=== PATIENT | female | born 1975 | race Caucasian/White ===

== ENCOUNTER 2017-08-12 20:55 | Emergency (ER) | payer MEDICAID | END 2017-08-12 22:58 | disposition home or self-care (01) | LOC: D.ER 20:55 | DX: R07.89 Other chest pain (principal); Z85.42 Personal history of malignant neoplasm of other parts of uterus; F17.200 Nicotine dependence, unspecified, uncomplicated ==

== ENCOUNTER 2018-08-08 11:24 | Emergency (ER) | payer MEDICAID ==
[~2018-08-08] VITALS: Ht 162.6 cm; Wt 59.1 kg
[2018-08-08 11:31] VITALS: Ht 162.6 cm; Wt 59.1 kg
[2018-08-08 12:16] LABS: BASOPHILS 0.2 % (0-2); EOSINOPHILS 2.9 % (0-7); HEMATOCRIT 45.5 % (36.0-48.0); HEMOGLOBIN 16.1 g/dL (12-16); IMMATURE GRANULOCYTES 0.2 % (0-5); LYMPHOCYTES 24.8 % (15-50); MCH 31.9 pg (26.0-34.0); MCHC 35.4 g/dL (31.0-37.0); MCV 90.1 fL (80.0-100.0); MONOCYTES 6.9 % (2-11); RBC 5.05 10x6/uL (4.00-5.40); WBC 13.3 10x3/uL (4.8-10.8)
[2018-08-08 12:20] LABS: PLATELET COUNT 257 10x3/uL (130-400)
[2018-08-08 12:36] LABS: ALKALINE PHOSPHATASE 156 U/L (46-116); ALT (SGPT) 28 U/L (10-68); AMYLASE - SERUM 42 U/L (25-115); BILIRUBIN - TOTAL 0.65 mg/dL (0.2-1.3); CALCIUM 9.3 mg/dL (8.5-10.1); CARBON DIOXIDE 26.7 mmol/L (21.0-32.0); CREATININE - SERUM 0.8 mg/dL (0.6-1.3); GLUCOSE 113 mg/dL (74-106); LIPASE 134 U/L (73-393); PROTEIN - SERUM 8.3 g/dL (6.4-8.2); UREA NITROGEN 12 mg/dL (7-18); eGFR NON AFRICAN AMERICAN 82 mL/min (90-120)
[2018-08-08 12:37] LABS: CALC OSMOLALITY 278 mosm/kg (275-300); CHLORIDE - SERUM 102 mmol/L (98-107); POTASSIUM - SERUM 4.2 mmol/L (3.5-5.1); SODIUM 139 mmol/L (136-145); TROPONIN-I < 0.017 ng/mL (0.000-0.060)
[2018-08-08 13:23] LABS: APPEARANCE HAZY (CLEAR); BILIRUBIN NEGATIVE (NEGATIVE); COLOR U (YELLOW); GLUCOSE NEGATIVE (NEGATIVE); KETONE NEGATIVE (NEGATIVE); NITRITE NEGATIVE (NEGATIVE); PROTEIN TRACE mg/dL (NEGATIVE); SPECIFIC GRAVITY 1.025 (1.005-1.020); UROBILINOGEN NORMAL (NORMAL); WHITE CELLS - URINE 0-5 /hpf (0-5)
[2018-08-08 13:24] LABS: BACTERIA FEW /hpf (NONE SEEN); MUCUS >1+ /lpf (NONE SEEN)
[2018-08-08 13:26] LABS: HYALINE CAST 0-5 /lpf (NONE SEEN)
[2018-08-08 13:42] LABS: PLATELET ESTIMATE DECREASED
[2018-08-08] MEDS ORDERED: ZOFRAN8 MG PO (15:08)
[2018-08-08 16:34] VITALS: BP 118/59
== END 2018-08-08 15:58 | disposition home or self-care (01) ==
LOC: D.ER 11:24
PROVIDERS: Family Medicine
DX: R10.13 Epigastric pain (principal); R19.7 Diarrhea, unspecified; R11.2 Nausea with vomiting, unspecified; F17.200 Nicotine dependence, unspecified, uncomplicated